=== PATIENT | female | born 1995 | race Caucasian/White ===

== ENCOUNTER 2017-06-21 16:35 | Emergency (ER) | payer BC ==
[~2017-06-21] VITALS: Ht 180.3 cm; Wt 75.0 kg
[2017-06-21 16:37] VITALS: BP 135/82; PULSE 101; RESP 14; TEMP 98.2; O2SAT 98
--- NOTE | 2017-06-21 17:17 | PD ---
HPI Chief Complaint: Headache Time Seen by Provider: 17:03 Travel History International Travel<30 days: No Contact w/Intl Traveler<30days: No Traveled to known affect area: No History of Present Illness HPI 21-year-old female presents to the emergency Department with complaint of posterior head pain and a headache after hitting her head on a dresser at approximately 10 PM last night. Was seen at urgent care and was told to come to the ER. She denies loss of consciousness. Denies neck pain. Denies confusion, disorientation, change in mentation, slurred speech. Denies focal deficits or weakness. Denies nausea or vomiting. Rates headache 6/10. He describes it as a throbbing sensation. Took Aleve this morning which did decrease her headache. Has not tried any other treatments or medications to alleviate her symptoms. No known aggravating factors. Denies significant past medical history. Primary care provider is in [place]. Allergies to penicillins. Has no other medical complaints. No other modifying factors or associated signs and symptoms. PFSH Past Medical History Medical History: Denies Significant Hx Tetanus Vaccination: < 5 Years Influenza Vaccination: Yes ?: Not LMP: 06/08/17 Social History Alcohol Use: No Tobacco Use: No Substance Use: No Allergies-Medications (Allergen,Severity, Reaction): Coded Allergies: Penicillins (Verified Allergy, Unknown, 06/21/17) amoxicillin (Verified Allergy, Unknown, 06/21/17) Reported Meds & Prescriptions Reported Meds & Active Scripts Active No Active Prescriptions or Reported Medications Review of Systems Except as stated in HPI: all other systems reviewed are Neg Physical Exam Narrative GENERAL: Well-nourished, well-developed female patient, in no acute distress SKIN: Warm and dry. HEAD: Atraumatic. Normocephalic. No facial droop noted. Tongue midline. Finger to nose test normal. EYES: Pupils equal and round at 3 mm with brisk reaction. No scleral icterus. No injection or drainage. PERRLA. EOMI. ENT: Mucosa pink and moist. Airway patent. NECK: Trachea midline. No lymphadenopathy. CARDIOVASCULAR: Regular rate. RESPIRATORY: No accessory muscle use. GASTROINTESTINAL: Flat. MUSCULOSKELETAL: No obvious deformities. No clubbing. No cyanosis. No edema. NEUROLOGICAL: Awake and alert. Oriented 4. No obvious cranial nerve deficits. Motor grossly within normal limits. Normal speech. No ataxia. No mid -line drift. No upper or lower extremity drift. Moves all extremities. 5/5 strength to all extremities. PSYCHIATRIC: Appropriate mood and affect; insight and judgment normal. Data Data Last Documented VS Vital Signs Date Time Temp Pulse Resp B/P (MAP) Pulse Ox O2 Delivery O2 Flow Rate FiO2 06/21/17 20:17 06/21/17 19:07 95 18 100 Room Air 06/21/17 16:[address] Brain W/O Iv Contrast(Rout) (06/21/17 ) Ed Urine Pregnancytest Poc (06/21/17 17:17) Ed Discharge Order (06/21/17 20:14) [facility] Medical Decision Making Medical Screen Exam Complete: Yes Emergency Medical Condition: Yes Medical Record Reviewed: Yes Differential Diagnosis Head injury, posttraumatic headache, medical clearance Narrative Course 21-year-old female with head injury after hitting her head on a dresser last night. Denies loss of consciousness. Denies neck pain. Neuro exam is unremarkable. The patient is lying comfortably medical on a plane tomorrow. Using the [place] CT will I can rule out imaging. I did discuss this with the father and the patient and they would like a CT scan done. CT head ordered. UPT negative. CT with no acute findings. Findings discussed with the patient and her father. Instructed patient to follow up with primary care provider. Patient verbalizes understanding and agreement with treatment plan. Patient is medically cleared and stable for discharge. Discussed reasons to return to the emergency department. Patient agrees with treatment plan. The patients vital signs are stable and the patient is stable for outpatient follow-up and treatment. Patient discharged home, stable and in no acute distress. Diagnosis Primary Impression: Head injury Qualified Codes: S09.90XA - Unspecified injury of head, initial encounter Additional Impression: Headache Qualified Codes: R51 - Headache Referrals: Primary Care Physician Patient Instructions: Acute Headache (ED), General Instructions, Head Injury ( ED) Additional Instructions: Ibuprofen or Tylenol as directed and as needed for headache Follow-up with primary care provider Return to the emergency department immediately with worsening of symptoms Med/Other Pt SpecificInfo: No Change to Meds, No Meds Exist/No RX given Scripts No Active Prescriptions or Reported Meds Disposition: 01 DISCHARGE HOME Condition: Stable Yessi Lamb Jun 21, 2017 17:17
[2017-06-21 19:07] VITALS: BP 136/73; PULSE 95; RESP 18; O2SAT 100
--- NOTE | 2017-06-22 19:47 | RADRPT ---
EXAM DATE/TIME: 06/21/2017 18:03 [facility] COMPARISON: No previous studies available for comparison. INDICATIONS : Trauma, hit head on dresser last night. Headache since. RADIATION DOSE: 50.01 CTDIvol (mGy) MEDICAL HISTORY : None SURGICAL HISTORY : None. ENCOUNTER: Initial ACUITY: 1 day PAIN SCALE: 4/10 LOCATION: cranial TECHNIQUE: Multiple contiguous axial images were obtained of the head. Using automated exposure control and adj ustment of the mA and/or kV according to patient size, radiation dose was kept as low as reasonably a chievable to obtain optimal diagnostic quality images. DICOM format image data is available electro nically for review and comparison. FINDINGS: CEREBRUM: The ventricles are normal for age. No evidence of midline shift, mass lesion, hemorrhage or acute in farction. No extra-axial fluid collections are seen. POSTERIOR FOSSA: The cerebellum and brainstem are intact. The 4th ventricle is midline. The cerebellopontine angle i s unremarkable. EXTRACRANIAL: The visualized portion of the orbits is intact. SKULL: The calvaria is intact. No evidence of skull fracture. CONCLUSION: No acute disease. Prudencio Cage MD on June 21, 2017 at 18:42 Board Certified Radiologist. This report was verified electronically.
== END 2017-06-21 20:24 | disposition home or self-care (01) ==
LOC: NEPD 16:35
DX: S09.90XA Unspecified injury of head, initial encounter (principal); W22.03XA Walked into furniture, initial encounter; Z88.0 Allergy status to penicillin
CPT/HCPCS: 70450; 84703; 99284